=== PATIENT | female | born 1975 | race Hispanic/Latino ===

== ENCOUNTER 2023-10-27 19:25 | Emergency (ER) | payer BC ==
[2023-10-27 20:42] LABS: #Basophils 0.1 10x3/uL (0.0-0.2); #Eosinphils 0.3 10x3/uL (0.0-0.5); #Monocytes 0.9 10x3/uL (0.0-1.1); #Neutrophils 9.2 10x3/uL (1.5-8.4); %Basophils 0.6 % (0.0-2.0); %Lymphocytes 15.2 % (18.0-47.0); %Monocytes 6.9 % (0.0-10.0); %Neutrophils 73.9 % (40.0-75.0); Hemoglobin 5.4 g/dL (12.0-15.5); Mean Corpuscular Hemoglobin 17.9 pg (27.0-33.0); Mean Corpuscular Volume 66.2 fl (81.6-98.3); Mean Platelet Volume 10.9 fl (7.4-10.4); Platelet Count 206 10x3/uL (150-450); RBC Distribution Width 17.8 % (11.5-14.5); Red Blood Cell (RBC) Count 3.02 10x6/uL (3.90-5.03)
[2023-10-27 20:50] LABS: ALT (SGPT) 14 U/L (8-55); AST (SGOT) 19 U/L (5-34); Albumin 4.3 g/dL (3.5-5.0); Alkaline Phosphatase 78 U/L (40-110); Anion Gap 13 mmol/L (10-20); BUN (Urea Nitrogen) 10 mg/dL (7.0-18.7); Bilirubin, Total 0.3 mg/dL (0.2-1.2); Calc. Creatinine Clearance 0 mL/min (70-130); Calcium 9.3 mg/dL (7.8-10.44); Carbon Dioxide 21 mmol/L (22-29); Chloride 107 mmol/L (98-107); Estimated GFR 88; Globulin 3.4 g/dL (2.4-3.5); Glucose 95 mg/dL (70-105); Potassium 3.6 mmol/L (3.5-5.1); Protein, Total 7.7 g/dL (6.0-8.3); Sodium 137 mmol/L (136-145)
[2023-10-27 20:51] LABS: PTT 24.4 sec (22.0-33.0); Prothrombin Time 10.4 sec (9.5-12.1)
[2023-10-27 21:01] LABS: Anisocytosis SLIGHT = 6-15 cells (100X) (0-5/hpf); Hypochromia MODERATE=16-30 cells (100X) (0-5/hpf)
[2023-10-27 21:02] LABS: Elliptocytes SLIGHT = 2-5 cells (100X) (0-1/hpf); Ovalocytes SLIGHT = 2-5 cells (100X) (0-1/hpf); Polychromasia MODERATE = 3-4 cells (100X) (0-2/hpf); Schistocytes SLIGHT = 2-5 cells (100X) (0-1/hpf); Tear Drops SLIGHT = 2-5 cells (100X) (0-1/hpf)
[2023-10-27 21:03] LABS: Microcytosis MARKED = >30 cells (100X) (0-5/hpf); Platelet Adequacy Comment Appears Adequate
[2023-10-27 21:08] LABS: White Blood Cell (WBC) Count 12.4 10x3/uL (3.5-10.5)
== END 2023-10-28 01:57 | disposition home or self-care (01) ==
LOC: CSHERS 19:25
DX: N92.0 Excessive and frequent menstruation with regular cycle (principal); D64.9 Anemia, unspecified
CPT/HCPCS: 36415; 36430; 80053; 85025; 85610; 85730; 86850; 86900; 86901; 99284; P9016